=== PATIENT | female | born 1950 | race Caucasian/White ===

== ENCOUNTER 2020-01-13 15:51 | Emergency (ER) | payer MEDICARE ==
--- NOTE | 2020-01-13 16:25 | EDM.PDOC ---
ED HPI GENERAL MEDICAL PROBLEM - General Chief Complaint: Abdominal Pain Stated Complaint: [facility] Time Seen by Provider: 01/13/20 16:05 Source of Information: Reports: Patient, RN Notes Reviewed History Limitations: Reports: No Limitations - History of Present Illness INITIAL COMMENTS - FREE TEXT/NARRATIVE: Patient is a 69-year-old female who presents to the ED via [facility] for the evaluation of her epigastric discomfort. The patient notes that for the last 2 or 3 weeks, she has been having some epigastric discomfort. She states there feels like there is a "gas bubble". In her epigastrium or just under her diaphragm in the middle of her abdomen. She states this pain does not go anywhere, she does not note anything that makes it better or worse. She notes this to be a dull gas pain type pain in nature. She went to the clinic today in [place], and had a EKG done, and they noted some changes that made her concerned, and called the ambulance. Patient's not having any chest pain, no cough or shortness of breath, she had some mild nausea along with some dizziness the other day as well, but she states she has a history of MS and a history of dizziness/vertigo. She did take some meclizine when the dizziness hit, and states that this seemed to help that quite a bit. She was also given 2 baby aspirin by the clinic today. Patient has been having issues with elevated blood pressure, her blood pressure at time of triage was 186/88. Patient states that she has been under a lot of stress at home, she states she has been taking increasing care of her , who is recovering from breast cancer. Her primary care provider is Dr. Culver from [facility]. Treatments RECEIVING ASSOCIATE: Reports: Other (see below) Other Treatments RECEIVING ASSOCIATE: 2 baby aspirin by the clinic today - Related Data Allergies Allergy/AdvReac Type Severity Reaction Status Date / Time Sulfa (Sulfonamide Allergy Severe Hives Verified 01/13/20 16:04 Antibiotics) sufentanil AdvReac Severe Drowsiness Verified 01/13/20 16:04 Home Meds: Home Meds Metoprolol Succinate 25 mg PO DAILY 01/13/20 [History] hydroCHLOROthiazide [Hydrochlorothiazide] 12.5 mg PO DAILY 01/13/20 [History] Past Medical History HEENT History: Reports: Allergic Rhinitis, Impaired Vision, Other (See Below) Other HEENT History: wears dentures, glasses Cardiovascular History: Reports: High Cholesterol, Hypertension, DE Gastrointestinal History: Reports: Diverticulosis, Hemorrhoids Musculoskeletal History: Reports: Other (See Below) Other Musculoskeletal History: R hip pain Neurological History: Reports: MS (Bilateral leg weakness (more in left leg)), Vertigo Dermatologic History: Reports: Other (See Below) Other Dermatologic History: dry skin - Past Surgical History Female Surgical History: Reports: Breast Biopsy, Hysterectomy, Oophorectomy Musculoskeletal Surgical History: Reports: Other (See Below) ED ROS GENERAL - Review of Systems Review Of Systems: Comprehensive ROS is negative, except as noted in HPI. ED EXAM, GI/ABD - Physical Exam Exam: See Below Exam Limited By: No Limitations General Appearance: Alert, WD/WN, No Apparent Distress Respiratory/Chest: No Respiratory Distress, Lungs Clear, Normal Breath Sounds, No Accessory Muscle Use, Chest Non-Tender Cardiovascular: Normal Peripheral Pulses, Regular Rate, Rhythm, No Murmur GI/Abdominal Exam: Normal Bowel Sounds, Soft, No Distention, No Mass, Tender (mild tenderness over the epigastrium) Extremities: Normal Inspection, Normal Capillary Refill Neurological: Alert, Oriented, Normal Cognition, No Motor/Sensory Deficits Psychiatric: Normal Affect, Normal Mood Skin Exam: Warm, Dry, Intact, Normal Color, No Rash EKG INTERPRETATION EKG Date: 01/13/20 Time: 16:26 Rhythm: NSR Rate (Beats/Min): 70 [place]: Normal P-Wave: Present QRS: Normal ST-T: Normal QT: Normal Comparison: NA - No Prior EKG EKG Interpretation Comments: No obvious ischemia or acute ST changes noted, reviewed by myself and Dr. Mcgregor. Course - Vital Signs Last Recorded V/S: Last Vital Signs Temp 97.7 F 01/13/20 16:02 Pulse 75 01/13/20 16:02 Resp 18 01/13/20 16:02 BP 186/88 H 01/13/20 16:02 Pulse Ox 95 01/13/20 16:02 - Orders/Labs/Meds Orders: Active Orders 24 hr Category Date Time Status EKG Documentation Completion [RC] STAT Care 01/13/20 16:05 Ordered Labs: Laboratory Tests 01/13/20 01/13/20 01/13/20 Range/Units 16:50 16:50 16:50 WBC 9.81 (3.98-10.04) K/mm3 RBC 5.16 (3.98-5.22) M/mm3 Hgb 14.6 (11.2-15.7) gm/dl Hct 44.9 (34.1-44.9) % MCV 87.0 (79.4-94.8) fl MCH 28.3 (25.6-32.2) pg MCHC 32.5 (32.2-35.5) g/dl RDW Std Deviation 46.4 H (36.4-46.3) fL Plt Count 308 (182-369) K/mm3 MPV 10.0 (9.4-12.3) fl Neut % (Auto) 70.7 (34.0-71.1) % Lymph % (Auto) 21.4 (19.3-51.7) % [place] % (Auto) 6.3 (4.7-12.5) % Eos % (Auto) 0.9 (0.7-5.8) Baso % (Auto) 0.3 (0.1-1.2) % Neut # (Auto) 6.93 H (1.56-6.13) K/mm3 Lymph # (Auto) 2.10 (1.18-3.74) K/mm3 [place] # (Auto) 0.62 H (0.24-0.36) K/mm3 Eos # (Auto) 0.09 (0.04-0.36) K/mm3 Baso # (Auto) 0.03 (0.01-0.08) K/mm3 PT 10.2 (9.7-11.7) SECONDS INR 0.95 APTT 27 (22-31) SECONDS Sodium 143 (136-145) mEq/L Potassium 3.7 (3.5-5.1) mEq/L Chloride 107 (98-107) mEq/L Carbon Dioxide 25 (21-32) mEq/L Anion Gap 14.7 (5-15) BUN 11 (7-18) mg/dL Creatinine 1.0 (0.55-1.02) mg/dL Est Cr Clr Drug Dosing 49.12 mL/min Estimated GFR (MDRD) 55 (>60) mL/min BUN/Creatinine Ratio 11.0 L (14-18) Glucose 107 (80-115) mg/dL Calcium 8.8 (8.5-10.1) mg/dL Magnesium 2.3 (1.8-2.4) mg/dl Total Bilirubin 0.2 (0.2-1.0) mg/dL AST 10 L (15-37) U/L ALT 16 (14-59) U/L Alkaline Phosphatase 65 (46-116) U/L Troponin I < 0.017 (0.00-0.056) ng/mL Total Protein 6.7 (6.4-8.2) g/dl Albumin 3.2 L (3.4-5.0) g/dl Globulin 3.5 gm/dL Albumin/Globulin Ratio 0.9 L (1-2) - Re-Assessments/Exams Free Text/Narrative Re-Assessment/Exam: 01/13/20 16:28 Patient presents to the ED for evaluation of her epigastric discomfort. I did go over the patient's prior EKG from March 2019 along with a EKG done at the [facility] today, with Dr. Mcgregor; he noted there was no appreciable difference between both of those EKGs. Nonetheless we will get a repeat EKG in our ER and get some baseline labs to evaluate further cardiac etiology of her epigastric discomfort. She is having increased stress at home, it could be more stress ulcer in nature. Will await labs to further delineate symptoms. 01/13/20 17:32 Patient's labs are unremarkable, troponin is undetectably low. At this time I did discuss the patient's labs with her, and she wishes to not go forward with any sort of imaging at this time. I do believe that her epigastric discomfort could be due to stress or a possible ulcer. I did go over with her the possibility of trialing Prilosec [id number] for the possibility of an [facility] er, she will go obtain some and take this over the weekend, and follow-up on Friday or Friday if she is not feeling much better. Departure - Departure Time of Disposition: 17:34 Disposition: Home, Self-Care 01 Condition: Good Clinical Impression: Abdominal discomfort, epigastric - Discharge Information *PRESCRIPTION DRUG MONITORING PROGRAM REVIEWED*: No *COPY OF PRESCRIPTION DRUG MONITORING REPORT IN PATIENT YORDAN: No Instructions: Abdominal Pain, Adult, [id number] Additional Instructions: You were evaluated in the ER today for your epigastric discomfort. An EKG, and labs were obtained at today's visit, and demonstrate no focal abnormalities. It is not apparent that you are suffering from any sort of heart attack or other cardiac related issues at today's visit. Your epigastric discomfort could be due to increased stress at home, along with the possibility of an ulcer. You should start using Prilosec, this is an [id number] medication you can obtain at any pharmacy or retail space like [employer]. This can take up to 72 hours to provide full benefit. If you are not noticing relief, by next week Friday or Friday I recommend you seek care for reevaluation to make sure that your symptoms are getting better or have them reevaluated. Your blood pressure was mildly high throughout your visit in the ER. You are a lready on 2 blood pressure medications, I recommend you go home monitor your blood pressure over the weekend, please take this when you are in a calm restful state. And record these numbers in a notebook and take these also to your primary care provider for evaluation and management. You may need a change in your medication. Please return to the ER at any time if your symptoms change or worsen. Sepsis Event Note (ED) - Evaluation Sepsis Screening Result: No Definite Risk - Focused Exam Vital Signs: Vital Signs Temp Pulse Resp BP Pulse Ox 01/13/20 16:02 97.7 F 75 18 186/88 H 95 - My Orders Last 24 Hours: My Active Orders 01/13/20 16:05 EKG Documentation Completion [RC] STAT - Assessment/Plan Last 24 Hours: My Active Orders 01/13/20 16:05 EKG Documentation Completion [RC] STAT
[2020-01-13 17:50] VITALS: BP 160/80; PULSE 76
== END 2020-01-13 18:01 | disposition home or self-care (01) ==
LOC: JD.ED 15:51
DX: R10.13 Epigastric pain (principal); G35 Multiple sclerosis; I10 Essential (primary) hypertension; I25.2 Old myocardial infarction; Z88.2 Allergy status to sulfonamides; Z79.899 Other long term (current) drug therapy
CPT/HCPCS: 36415; 80053; 83735; 84484; 85025; 85610; 85730; 93005; 93010; 99283; 99284-25